=== PATIENT | male | born 1995 | race African-American/Black ===

== ENCOUNTER 2016-12-19 18:35 | Emergency (ER) | payer SELFPAY ==
[~2016-12-19] VITALS: Ht 195.6 cm; Wt 155.0 kg
[~2016-12-19 18:35] MED LIST: CIPR500T4 PO
[2016-12-19 18:39] VITALS: BP 149/90; PULSE 90; RESP 18; TEMP 97.8; O2SAT 97
--- NOTE | 2016-12-19 19:48 | PD ---
HPI . right ear pain for 3 days Chief Complaint: ENT Complaint Time Seen by Provider: 19:46 Travel History International Travel<30 days: No Contact w/Intl Traveler<30days: No Traveled to known affect area: No History of Present Illness HPI 21-year-old male with no significant past medical history here with complaints of right ear pain for the past 3 days. Says the pain is worse when he wakes up in the morning. He complains of a sensation of fullness and it is now affecting his right eye. He denies any cold symptoms. He denies any fever or chills. Has no other complaints. He does not have a primary care provider. [facility] / [facility] Past Medical History Medical History: Denies Significant Hx Cardiovascular Problems: Yes (htn takes no meds) Diminished Hearing: No Hypertension: Yes Tetanus Vaccination: Unknown Past Surgical History Surgical History: No Previous Surgery Social History Alcohol Use: No Tobacco Use: Yes (2 cigars/day) Substance Use: No Allergies-Medications (Allergen,Severity, Reaction): Coded Allergies: No Known Allergies (Verified , 12/19/16) Reported Meds & Prescriptions Reported Meds & Active Scripts Active No Active Prescriptions or Reported Medications Review of Systems General / Constitutional: No: Fever Eyes: No: Visual changes HENT: Positive: Earache, No: Headaches, Ear Discharge Cardiovascular: No: Chest Pain or Discomfort Respiratory: No: Shortness of Breath Gastrointestinal: No: Abdominal Pain Genitourinary: No: Dysuria Musculoskeletal: No: Pain Skin: No Rash Neurologic: No: Weakness Psychiatric: No: Depression Endocrine: No: Polydipsia Hematologic/Lymphatic: No: Easy Bruising Physical Exam Narrative GENERAL: AAO x 3, no acute distress, Well-nourished, well-developed patient. SKIN: Warm and dry. No visible rashes or bruising. HEAD: Normocephalic and atraumatic. EYES: No scleral icterus. No injection or drainage. ENT: No nasal drainage noted. Mucous membranes pink. Airway patent. Right TM with cerumen impaction NECK: Supple, trachea midline. No JVD. No lymphadenopathy. CARDIOVASCULAR: Regular rate and rhythm without murmurs, gallops, or rubs. RESPIRATORY: Breath sounds equal bilaterally. No accessory muscle use. No rhonchi or rales. GASTROINTESTINAL: Abdomen soft, non-tender, nondistended. EXTREMITIES: No cyanosis or edema. BACK: Nontender without obvious deformity. No CVA tenderness. PSYCH: AAO x 3, normal affect. Data Data Last Documented VS Vital Signs Date Time Temp Pulse Resp B/P Pulse Ox O2 Delivery O2 Flow Rate FiO2 12/19/16 18:39 97.8 90 18 149/90 97 Orders Ear Irrigation (12/19/16 19:46) MDM Medical Decision Making Medical Screen Exam Complete: Yes Emergency Medical Condition: Yes Medical Record Reviewed: Yes Differential Diagnosis cerumen impaction, OM, OE Narrative Course 21-year-old male with no significant past medical history here with complaints of right ear pain for the past 3 days. Says the pain is worse when he wakes up in the morning. He complains of a sensation of fullness and it is now affecting his right eye. He denies any cold symptoms. He denies any fever or chills. Has no other complaints. He does not have a primary care provider. Patient seen and examined. He has right cerumen impaction. Ear irrigation in ED. Lots of cerumen removed by ophthalmology technician. Recommend f/u with ENT for removal as TM still not visualized and cerumen is too compacted to remove here. Recommend Debrox at home. Patient verbalized understanding of instructions, questions were answered, and thanked me for their care. I advised them if their condition worsens, please return to the nearest emergency room for further care. Diagnosis Primary Impression: Impacted cerumen of right ear Patient Instructions: General Instructions Additional Instructions: Please return to emergency department if your symptoms return or worsen. Follow up with your primary care provider. . Please follow-up with your nose and throat specialist to have your ears cleaned. Try debrox over the counter to help reduce build up of ear wax. Med/Other Pt SpecificInfo: No Meds Exist/No RX given Scripts No Active Prescriptions or Reported Meds Disposition: 01 DISCHARGE HOME Condition: Stable Blank Roland Dec 19, 2016 19:48
== END 2016-12-19 20:42 | disposition home or self-care (01) ==
LOC: PHEFT 18:35
DX: H61.21 Impacted cerumen, right ear (principal); H57.8 Other specified disorders of eye and adnexa; I10 Essential (primary) hypertension; Z72.0 Tobacco use; Z86.79 Personal history of other diseases of the circulatory system
CPT/HCPCS: 99282

== ENCOUNTER 2017-01-09 18:23 | Emergency (ER) | payer SELFPAY ==
[~2017-01-09] VITALS: Ht 195.6 cm; Wt 153.0 kg
[2017-01-09 18:23] VITALS: BP 149/93; PULSE 75; RESP 16; TEMP 98.1; O2SAT 98
[2017-01-09 19:09] LABS: BLOOD, URINE NEG (NEG); GLUCOSE,URINE NEG (NEG); KETONE, URINE NEG (NEG); NITRITE,URINE NEG (NEG); PH, URINE 6.5 (5.0-8.5)
[2017-01-09 19:24] LABS: MUCUS URINE FEW /lpf (OCC); URINE COLOR YELLOW (YELLW/STRAW)
[2017-01-09 19:25] LABS: COMMENT (UR) CULT NOT INDICATED; CULTURE IF INDICATED CULT NOT INDICATED; SQUAMOUS EPITHELIAL CELL URINE 0-5 /hpf (0-5); WBC, URINE 0-2 /hpf (0-5)
== END 2017-01-09 19:16 | disposition left against medical advice (07) ==
LOC: PHED 18:23
DX: R51 Headache (principal); R11.0 Nausea; N39.0 Urinary tract infection, site not specified
CPT/HCPCS: 81001; 99281

== ENCOUNTER 2017-01-17 20:13 | Emergency (ER) | payer SELFPAY ==
[~2017-01-17] VITALS: Ht 195.6 cm; Wt 155.1 kg
[2017-01-17 20:17] VITALS: BP 161/104; PULSE 86; RESP 16; TEMP 98.2; O2SAT 100
--- NOTE | 2017-01-17 21:05 | PD ---
HPI Chief Complaint: Cold / Flu Symptoms Time Seen by Provider: 21:00 Travel History International Travel<30 days: No Contact w/Intl Traveler<30days: No Traveled to known affect area: No History of Present Illness HPI 21-year-old Afro-[place] male who presents the emergency department with 2 day history of flulike symptoms including headache, congestion, cough, sore throat, and body aches. Patient has had decreased appetite but no nausea vomiting or diarrhea. He feels congestion in the chest and sinuses. He denies ear pain. He is felt feverish and had chills. He feels worse today than yesterday. He has no known drug allergies. PFSH Past Medical History Cardiovascular Problems: Yes (htn takes no meds) Diminished Hearing: No Hypertension: Yes Tetanus Vaccination: > 5 Years Past Surgical History Oral Surgery: Yes (WISDOM TEETH) Social History Alcohol Use: No Tobacco Use: Yes (2 cigars/day) Substance Use: No Allergies-Medications (Allergen,Severity, Reaction): Coded Allergies: No Known Allergies (Verified , 01/17/17) Reported Meds & Prescriptions Reported Meds & Active Scripts Active No Active Prescriptions or Reported Medications Review of Systems Except as stated in HPI: all other systems reviewed are Neg General / Constitutional: Positive: Fever, Chills Eyes: No: Visual changes HENT: Positive: Headaches, Sore Throat, Rhinitis, Rhinorrhea, Congestion, No: Nosebleed, Neck Stiffness, Neck Pain, Masses, Gingival Bleeding, Dental Difficulties, Ear Discharge, Earache Cardiovascular: No: Chest Pain or Discomfort Respiratory: Positive: Cough, Shortness of Breath, Wheezing, No: Sneezing, Orthopnea, Hemoptysis, Night Sweats, Pleuritic Pain Gastrointestinal: No: Nausea, Vomiting, Diarrhea, Abdominal Pain Genitourinary: No: Dysuria Musculoskeletal: No: Pain Skin: No Rash Neurologic: No: Weakness Psychiatric: No: Depression Endocrine: No: Polydipsia Hematologic/Lymphatic: No: Easy Bruising Physical Exam Narrative GENERAL: He appears ill but not septic. SKIN: Warm and mildly diaphoretic. Normal color. Normal turgor. HEAD: Atraumatic. Normocephalic. EYES: Pupils equal and round. No scleral icterus. No injection or drainage. ENT: No nasal bleeding or discharge. Mucous membranes pink and moist. Pharynx appears normal. No significant injection or swelling. TMs are clear bilaterally. No sinus tenderness. Patient has milky white sinus/nasal discharge. NECK: Trachea midline. Neck is supple nontender without lymphadenopathy. CARDIOVASCULAR: Regular rate and rhythm. RESPIRATORY: No accessory muscle use. Mild expiratory wheezes to auscultation. No rhonchi or rales. Breath sounds equal bilaterally. GASTROINTESTINAL: Abdomen soft, non-tender, nondistended. Hepatic and splenic margins not palpable. MUSCULOSKELETAL: Extremities without clubbing, cyanosis, or edema. No obvious deformities. NEUROLOGICAL: Awake and alert. No obvious cranial nerve deficits. Motor grossly within normal limits. Five out of 5 muscle strength in the arms and legs. Normal speech. PSYCHIATRIC: Appropriate mood and affect; insight and judgment normal. Data Data Last Documented VS Vital Signs Date Time Temp Pulse Resp B/P Pulse Ox O2 Delivery O2 Flow Rate FiO2 01/17/17 20:17 98.2 86 16 161/104 100 Orders Influenzae A/B Antigen (01/17/17 20:58) Albuterol-Ipratropium Neb (Duoneb Neb) (01/17/17 21:15) MDM Medical Decision Making Medical Screen Exam Complete: Yes Emergency Medical Condition: Yes Differential Diagnosis Upper respiratory infection. Bronchitis. Influenza. Wheezing. Narrative Course Patient is medically stable at time of exam. Rapid influenza sent to the lab. DuoNeb 1 is ordered. Influenza is negative. Patient felt improved after his DuoNeb 1. Patient will be treated with azithromycin Dosepak as directed. Patient given a prescription for albuterol 2 puffs every 4-6 hours when necessary. Patient is to rest and push fluids. Work note for tomorrow is given. Patient follow with his primary care physician or return to emergency department if symptoms worsen as discussed. Diagnosis Primary Impression: Acute wheezy bronchitis Referrals: Primary Care Physician Patient Instructions: Acute Bronchitis (ED), General Instructions Additional Instructions: Influenza is negative. Patient felt improved after his DuoNeb 1. Patient will be treated with azithromycin Dosepak as directed. Patient given a prescription for albuterol 2 puffs every 4-6 hours when necessary. Patient is to rest and push fluids. Work note for tomorrow is given. Patient follow with his primary care physician or return to emergency department if symptoms worsen as discussed. Scripts No Active Prescriptions or Reported Meds Disposition: DISCHARGE HOME Condition: Stable Sandoval Panchal January 17, 2017 21:05
[2017-01-17] MEDS ORDERED: RESP: ALBUTEROL 2.5 MG/IPRATROPIUM 0.5 MG NEB (SCH) INH ONE (21:15)
[2017-01-17] MEDS ORDERED: VENTAER INH (21:28)
[2017-01-17] MEDS ORDERED: AZIT250T3 PO (21:28)
== END 2017-01-17 21:35 | disposition home or self-care (01) ==
LOC: PHEFT 20:13
DX: J20.9 Acute bronchitis, unspecified (principal); F17.290 Nicotine dependence, other tobacco product, uncomplicated
CPT/HCPCS: 87804; 94664; 99284